=== PATIENT | female | born 1970 | race Caucasian/White ===

== ENCOUNTER 2022-04-25 09:44 | Emergency (ER) | payer BC, SELFPAY ==
[2022-04-25] MEDS ORDERED: Ketorolac Tromethamine 30 MG/ML VIAL ONE (11:23)
== END 2022-04-25 13:42 | disposition home or self-care (01) ==
LOC: ERS 09:44
DX: M54.42 Lumbago with sciatica, left side (principal); I10 Essential (primary) hypertension; E03.9 Hypothyroidism, unspecified
CPT/HCPCS: 96372; 99283; J1885